=== PATIENT | male | born 1975 | race Caucasian/White ===

== ENCOUNTER → 2019-05-05 | Outpatient (CLI) | payer MEDICARE ==
[~2019-05-05] MED LIST: KEFLEX500 MG PO; PREDNISONE20 MG PO; VICODIN 5/500 505 MG PO
[2019-05-05 16:50] LABS: BASO # 0.1 10*3/uL (0.0-0.1); EOS # 0.3 10*3/uL (0.0-0.4); EOS % 3.6 % (1.0-4.0); HEMATOCRIT 40.7 % (42.0-52.0); HEMOGLOBIN 12.7 g/dl (14.0-18.0); LYMPH # 2.3 10*3/uL (1.3-4.4); LYMPH % 33.3 % (27.0-41.0); MEAN CELL VOLUME 94.7 fl (80.0-94.0); MEAN CORPUSCULAR HGB 29.5 pg (27.0-31.0); MEAN CORPUSCULAR HGB CONC 31.2 g/dl (33.0-37.0); MEAN PLATELET VOLUME 12.4 fl (9.6-12.3); MONO # 0.6 10*3/uL (0.1-1.0); NEUT # 3.8 10*3/uL (2.3-7.9); PLATELET COUNT AUTOMATED 170 10*3/uL (130-400); RED CELL DISTRI WIDTH 13.8 % (0-14.5)
[2019-05-05 16:54] LABS: BILIRUBIN NEGATIVE (NEGATIVE); BLOOD NEGATIVE (NEGATIVE); CLARITY SL CLOUDY (CLEAR); COLOR YELLOW (YELLOW); GLUCOSE NEGATIVE (NEGATIVE); KETONE NEGATIVE (NEGATIVE); LEUKO ESTERASE NEGATIVE (NEGATIVE); NITRITE NEGATIVE (NEGATIVE); UROBILINOGEN 0.2 E.U./dl (0.2-1.0)
[2019-05-05 17:02] LABS: BACTERIA TRACE; WBC 0-2 wbc/hpf (0-5)
[2019-05-05 17:07] LABS: ALBUMIN 3.7 gm/dl (3.1-4.5); ALKALINE PHOSPHATASE 60 U/L (45-117); BUN 46 mg/dl (7-24); CHLORIDE 104 mmol/L (98-107); CREATININE 3.08 mg/dL (0.70-1.30); LDH 247 U/L (87-241); POTASSIUM 3.9 mmol/L (3.5-5.1); SGOT/AST 8 IU/L (3-35); SGPT/ALT 14 U/L (12-78); SODIUM 137 mmol/L (136-145); TOTAL PROTEIN 7.8 gm/dL (6.4-8.2)
[2019-05-05 17:11] LABS: BETA-HCG, TUMOR MARKER < 1.0 mIU/mL (<1)
== END | disposition home or self-care (01) ==
LOC: LAB 15:41
PROVIDERS: Nurse Practitioner Family
DX: Z12.5 Encounter for screening for malignant neoplasm of prostate (principal); N50.819 Testicular pain, unspecified; I10 Essential (primary) hypertension

== ENCOUNTER 2019-05-24 08:15 | Emergency (ER) | payer MEDICARE ==
[~2019-05-24] VITALS: Ht 170.1 cm; Wt 149.7 kg
[2019-05-24] MEDS ORDERED: MEDROL DOSEPAK4 MG PO (11:06)
== END 2019-05-24 12:05 | disposition home or self-care (01) ==
LOC: ED 08:15
DX: M10.071 Idiopathic gout, right ankle and foot (principal); E11.9 Type 2 diabetes mellitus without complications; I10 Essential (primary) hypertension; Z91.013 Allergy to seafood

== ENCOUNTER → 2019-06-23 | Outpatient (CLI) | payer MEDICARE ==
[~2019-06-23] MED LIST changes: +MEDROL DOSEPAK4 MG PO
== END ==
LOC: US 12:58
DX: N50.812 Left testicular pain (principal); N43.3 Hydrocele, unspecified

== ENCOUNTER 2019-07-15 02:34 | Emergency (ER) | payer MEDICARE ==
[~2019-07-15] VITALS: Ht 170.1 cm; Wt 149.7 kg
[2019-07-15] MEDS ORDERED: GLIPIZIDE5 MG PO (02:53)
[2019-07-15] MEDS ORDERED: CLONIDINE HCL0.2 MG PO (02:54)
[2019-07-15] MEDS ORDERED: OZEMPIC1 MG/0.75 SQ (02:54)
[2019-07-15] MEDS ORDERED: LISINOPRIL20 MG PO (02:54)
[2019-07-15] MEDS ORDERED: METOPROLOL TAR100 M1 PO (02:54)
[2019-07-15] MEDS ORDERED: POTASSIUM CHLO10 ME4 PO (02:54)
[2019-07-15] MEDS ORDERED: XARE20MG PO (02:54)
[2019-07-15] MEDS ORDERED: FUROSEMIDE40 MG PO (02:54)
[2019-07-15] MEDS ORDERED: ALDACTONE25 MG PO (02:54)
== END 2019-07-15 04:00 | disposition home or self-care (01) ==
LOC: ED 02:34
DX: S96.911A Strain of unspecified muscle and tendon at ankle and foot level, right foot, initial encounter (principal); I10 Essential (primary) hypertension; J45.909 Unspecified asthma, uncomplicated; Z91.013 Allergy to seafood; Z79.899 Other long term (current) drug therapy; W22.8XXA Striking against or struck by other objects, initial encounter; Y93.89 Activity, other specified; Y92.89 Other specified places as the place of occurrence of the external cause; Y99.8 Other external cause status

== ENCOUNTER 2019-11-08 19:10 | Observation (INO) | payer MEDICARE ==
[~2019-11-08] VITALS: Ht 170.1 cm; Wt 155.8 kg
[~2019-11-08 19:10] MED LIST changes: +ALDACTONE25 MG PO; +CLONIDINE HCL0.2 MG PO; +FUROSEMIDE40 MG PO; +GLIPIZIDE5 MG PO; +LISINOPRIL20 MG PO; +METOPROLOL TAR100 M1 PO; +OZEMPIC1 MG/0.75 SQ; +POTASSIUM CHLO10 ME4 PO; +XARE20MG PO
[2019-11-08 19:15] VITALS: BP 151/99
[2019-11-08 19:59] LABS: BASO # 0.1 10*3/uL (0.0-0.1); BASO % 0.8 % (0.0-1.0); EOS # 0.2 10*3/uL (0.0-0.4); EOS % 3.4 % (1.0-4.0); HEMATOCRIT 48.6 % (42.0-52.0); HEMOGLOBIN 14.7 g/dl (14.0-18.0); LYMPH # 1.7 10*3/uL (1.3-4.4); LYMPH % 23.2 % (27.0-41.0); MEAN CELL VOLUME 93.5 fl (80.0-94.0); MEAN CORPUSCULAR HGB 28.3 pg (27.0-31.0); MEAN CORPUSCULAR HGB CONC 30.2 g/dl (33.0-37.0); MEAN PLATELET VOLUME 12.5 fl (9.6-12.3); MONO # 0.6 10*3/uL (0.1-1.0); NEUT # 4.5 10*3/uL (2.3-7.9); NEUT % 63.3 % (47.0-73.0); PLATELET COUNT AUTOMATED 149 10*3/uL (130-400); RED CELL DISTRI WIDTH 12.7 % (0-14.5); WHITE BLOOD COUNT 7.1 10*3/uL (4.8-10.8)
[2019-11-08 20:14] LABS: ACT PARTIAL THROMBO TIME 24.8 SECONDS (20.0-32.1); INTERNATIONAL NORM RATIO 0.9 (2.0-3.5)
[2019-11-08 20:16] LABS: ALBUMIN 3.2 gm/dl (3.1-4.5); CREATININE 1.79 mg/dL (0.70-1.30); POTASSIUM 4.2 mmol/L (3.5-5.1); TOTAL PROTEIN 7.6 gm/dL (6.4-8.2)
[2019-11-08 20:19] LABS: TROPONIN I 0.167 ng/ml (<0.045)
[2019-11-08 21:10] VITALS: BP 146/88
[2019-11-08 22:49] VITALS: BP 149/93
[2019-11-08] MEDS ORDERED: ALLOPURINOL100 MG PO (23:00)
[2019-11-08] MEDS ORDERED: SIMVASTATIN20 MG PO (23:01)
[2019-11-09] VITALS: BP 149/93
[2019-11-09 06:10] LABS: BASO # 0.1 10*3/uL (0.0-0.1); BASO % 0.8 % (0.0-1.0); EOS # 0.3 10*3/uL (0.0-0.4); EOS % 3.5 % (1.0-4.0); HEMATOCRIT 47.4 % (42.0-52.0); HEMOGLOBIN 14.6 g/dl (14.0-18.0); LYMPH # 2.3 10*3/uL (1.3-4.4); LYMPH % 30.6 % (27.0-41.0); MEAN CELL VOLUME 91.5 fl (80.0-94.0); MEAN CORPUSCULAR HGB 28.2 pg (27.0-31.0); MEAN CORPUSCULAR HGB CONC 30.8 g/dl (33.0-37.0); MEAN PLATELET VOLUME 12.2 fl (9.6-12.3); MONO # 0.8 10*3/uL (0.1-1.0); MONO % 10.6 % (3.0-9.0); NEUT # 4.1 10*3/uL (2.3-7.9); NEUT % 54.4 % (47.0-73.0); PLATELET COUNT AUTOMATED 158 10*3/uL (130-400); RED BLOOD COUNT 5.18 10*6/uL (4.50-5.90); RED CELL DISTRI WIDTH 12.7 % (0-14.5); WHITE BLOOD COUNT 7.6 10*3/uL (4.8-10.8)
[2019-11-09 06:24] LABS: BUN 24 mg/dl (7-24); CHLORIDE 109 mmol/L (98-107); CHOLESTEROL 157 mg/dL (<200); CREATININE 1.53 mg/dL (0.70-1.30); HDL CHOLESTEROL 58 mg/dl (40-60); LDL CHOLESTEROL 82 mg/dL (9-159); POTASSIUM 4.1 mmol/L (3.5-5.1); SODIUM 142 mmol/L (136-145); TRIGLYCERIDES 87 mg/dl (<150); VLDL CHOLESTEROL 17 mg/dL (6-40)
[2019-11-09 09:30] VITALS: BP 148/96
[2019-11-09 12:00] VITALS: BP 138/92
== END 2019-11-09 14:15 | disposition home or self-care (01) ==
LOC: ED 19:10 → EDHOLD 22:08 → 4E 22:08
PROVIDERS: Emergency Medicine; Family Medicine; ADMIT Internal Medicine
DX: I21.4 Non-ST elevation (NSTEMI) myocardial infarction (principal); Z45.02 Encounter for adjustment and management of automatic implantable cardiac defibrillator; R00.0 Tachycardia, unspecified; I42.9 Cardiomyopathy, unspecified; I82.509 Chronic embolism and thrombosis of unspecified deep veins of unspecified lower extremity; E11.65 Type 2 diabetes mellitus with hyperglycemia; E11.22 Type 2 diabetes mellitus with diabetic chronic kidney disease; E11.51 Type 2 diabetes mellitus with diabetic peripheral angiopathy without gangrene; I12.9 Hypertensive chronic kidney disease with stage 1 through stage 4 chronic kidney disease, or unspecified chronic kidney disease; N18.9 Chronic kidney disease, unspecified; M10.9 Gout, unspecified; E66.01 Morbid (severe) obesity due to excess calories; R06.82 Tachypnea, not elsewhere classified; E55.9 Vitamin D deficiency, unspecified; R65.10 Systemic inflammatory response syndrome (SIRS) of non-infectious origin without acute organ dysfunction; Z79.4 Long term (current) use of insulin; Z95.810 Presence of automatic (implantable) cardiac defibrillator; Z68.43 Body mass index [BMI] 50.0-59.9, adult

== ENCOUNTER 2020-01-01 20:06 | Emergency (ER) | payer MEDICARE ==
[~2020-01-01] VITALS: Ht 170.1 cm; Wt 149.7 kg
[~2020-01-01 20:06] MED LIST changes: +ALLOPURINOL100 MG PO; +SIMVASTATIN20 MG PO
[2020-01-01] MEDS ORDERED: PREDNISONE20 M1 PO (20:22)
== END 2020-01-01 20:43 | disposition home or self-care (01) ==
LOC: ED 20:06
DX: M10.9 Gout, unspecified (principal); I10 Essential (primary) hypertension; J45.909 Unspecified asthma, uncomplicated; Z79.899 Other long term (current) drug therapy; Z79.2 Long term (current) use of antibiotics

== ENCOUNTER 2020-03-25 20:56 | Emergency (ER) | payer MEDICARE ==
[~2020-03-25] VITALS: Ht 170.1 cm; Wt 136.1 kg
[~2020-03-25 20:56] MED LIST changes: +PREDNISONE20 M1 PO
[2020-03-25] MEDS ORDERED: ZOFRAN4 MG PO (22:52)
== END 2020-03-25 23:08 | disposition home or self-care (01) ==
LOC: ED 20:56
DX: R50.9 Fever, unspecified (principal); R51 Headache; R11.0 Nausea; M10.9 Gout, unspecified; E66.01 Morbid (severe) obesity due to excess calories; I12.9 Hypertensive chronic kidney disease with stage 1 through stage 4 chronic kidney disease, or unspecified chronic kidney disease; E11.22 Type 2 diabetes mellitus with diabetic chronic kidney disease; N18.9 Chronic kidney disease, unspecified; Z20.828 Contact with and (suspected) exposure to other viral communicable diseases; Z91.013 Allergy to seafood; Z79.899 Other long term (current) drug therapy; Z87.891 Personal history of nicotine dependence; Z79.4 Long term (current) use of insulin

== ENCOUNTER 2020-03-27 04:04 | Inpatient (IN) | payer MEDICARE ==
[~2020-03-27] VITALS: Ht 170.1 cm; Wt 158.4 kg
[2020-03-27] VITALS (10 sets, daily range): BP systolic 88–153; BP diastolic 47–78
[~2020-03-27 04:04] MED LIST changes: +ZOFRAN4 MG PO
[2020-03-27 05:59] LABS: BILIRUBIN NEGATIVE (NEGATIVE); BLOOD 3+ (NEGATIVE); CLARITY SL CLOUDY (CLEAR); COLOR YELLOW (YELLOW); GLUCOSE NEGATIVE (NEGATIVE); KETONE NEGATIVE (NEGATIVE); LEUKO ESTERASE NEGATIVE (NEGATIVE); NITRITE NEGATIVE (NEGATIVE)
[2020-03-27 06:03] LABS: BACTERIA 1+; EPITHELIAL CELLS 41-50; RBC 21-30 rbc/hpf (0-2)
[2020-03-27 06:07] LABS: HEMATOCRIT 48.6 % (42.0-52.0); MEAN CELL VOLUME 92.7 fl (80.0-94.0); MEAN CORPUSCULAR HGB 28.2 pg (27.0-31.0); MEAN CORPUSCULAR HGB CONC 30.5 g/dl (33.0-37.0); MEAN PLATELET VOLUME 13.2 fl (9.6-12.3); PLATELET COUNT AUTOMATED 72 10*3/uL (130-400); RED BLOOD COUNT 5.24 10*6/uL (4.50-5.90); RED CELL DISTRI WIDTH 13.8 % (0-14.5); WHITE BLOOD COUNT 11.8 10*3/uL (4.8-10.8)
[2020-03-27 06:26] LABS: ALBUMIN 2.7 gm/dl (3.1-4.5); CREATININE 2.56 mg/dL (0.70-1.30); POTASSIUM 4.4 mmol/L (3.5-5.1); TOTAL PROTEIN 7.2 gm/dL (6.4-8.2)
[2020-03-27 06:51] LABS: PLATELET SUFFICIENCY LOW (NORMAL); TOTAL CELLS COUNTED 100 #CELLS
--- NOTE | 2020-03-27 07:00 | NUR ---
PT SAYS MEDICATION IS EFFECTIVE BUT PAIN IS STILL THERE
--- NOTE | 2020-03-27 07:40 | NUR ---
BP BETTER 102/47. PT STATES HE IS FEELING BETTER COMPARED TO WHEN HE FIRST CAME IN.---SIMONE KIM RN
--- NOTE | 2020-03-27 10:13 | NUR ---
Time: 1009 A 45 year old MALE admitted to under services of KENDALL CUETO DO. Pt. arrived via stretcher from ER. Chief complaint: RT FLANK PAIN. TESTED FRIDAY FOR COVID AFTER BEING IN [place] BUT NO SYMPTOMS SHAYNA TAYLOR
--- NOTE | 2020-03-27 13:48 | NUR ---
MEDICATED WITH PRN NORCO PER ORDER FOR CO RIGHT FLANK PAIN. WILL ASSESS EFFECTIVENESS.
--- NOTE | 2020-03-27 14:48 | NUR ---
PER PATIENT NORCO ONLY SOMEWHAT EFFECTIVE.
--- NOTE | 2020-03-27 16:17 | NUR ---
MEDICATED WITH PRN MORPHINE FOR CO RIGHT FLANK PAIN. WILL ASSESS EFFECTIVENESS.
--- NOTE | 2020-03-27 16:36 | NUR ---
BSG CHECKED AT THIS TIME AND WAS 73. PATIENT GIVEN ORANGE JUICE.
--- NOTE | 2020-03-27 17:15 | NUR ---
NOTIFIED PATIENTS HR STAYING IN THE 140S.
--- NOTE | 2020-03-27 17:17 | NUR ---
PER PATIENT MORPHINE ONLY SOMEWHAT EFFECTIVE.
--- NOTE | 2020-03-27 17:20 | NUR ---
PER TO GIVE METOPROLOL 100 MG NOW AND THEN DEPENDING ON RATE MAY STILL GIVE 2200 DOSE. WILL MONITOR.
--- NOTE | 2020-03-27 17:47 | NUR ---
MEDICATED WITH METOPROLOL 100mg PO FOR ELEVATED HEART RATE. PATIENT LAYING IN BED AND RESP RATE 24 BUT RESP ARE SLIGHTLY LABORED. PT SAID HE WAS JUST STANDING UP HIS BACK HURT.. DISCUSSED POSITIVE BLOOD CULTURES AND IMPORATNCE OF SELF PRONING. DISCUSSED WORST CASE SENARIO PATIENT ASKED HOW BAD IT COULD GET.
--- NOTE | 2020-03-27 18:04 | NUR ---
ANSWERING SERVICE NOTIFIED OF NEW CONSULT.
--- NOTE | 2020-03-27 18:14 | NUR ---
CALLED BACK REGARDING NEW CONSULT. DISCUSSED PATIENT CONDITION. NEW ORDERS RECEIVED.
--- NOTE | 2020-03-27 18:53 | NUR ---
MEDICATED WITH PRN TYLENOL AT THIS TIME FOR TEMP OF 101.4. WILL MONITOR.
--- NOTE | 2020-03-27 18:59 | NUR ---
PER TO GET A FULL SET OF VITALS ON PATIENT. INFORMED PATIENTS TEMP 101.4, BP 124/74, HR 122, 95% ON ROOM AIR. PER DR. LEVI REASSESS VITALS AT 2200. IF BP > 140 GIVE 2200 DOSE OF METOPROLOL, IF < 140 HOLD 2200 DOSE OF METOPROLOL.
--- NOTE | 2020-03-27 20:45 | NUR ---
IN TO SEE PT AT THIS TIME. PT STATES THAT HE IS FEELING OKAY. VITALS WNL. RESPS EASY AND NONLABORED. BED IS LOW, CALL LIGHT WITHIN REACH. WILL CONTINUE TO MONITOR.
[2020-03-28] VITALS: BP 122/74
[2020-03-28 06:06] LABS: ALBUMIN 2.2 gm/dl (3.1-4.5); CREATININE 1.85 mg/dL (0.70-1.30); FREE T4 1.38 ng/dl (0.76-1.46); HEMATOCRIT 45.4 % (42.0-52.0); MEAN CELL VOLUME 91.9 fl (80.0-94.0); MEAN CORPUSCULAR HGB 28.7 pg (27.0-31.0); MEAN CORPUSCULAR HGB CONC 31.3 g/dl (33.0-37.0); MEAN PLATELET VOLUME 13.8 fl (9.6-12.3); PLATELET COUNT AUTOMATED 52 10*3/uL (130-400); POTASSIUM 4.2 mmol/L (3.5-5.1); RED BLOOD COUNT 4.94 10*6/uL (4.50-5.90); RED CELL DISTRI WIDTH 14.2 % (0-14.5); TOTAL PROTEIN 6.9 gm/dL (6.4-8.2); WHITE BLOOD COUNT 12.2 10*3/uL (4.8-10.8)
[2020-03-28 06:11] LABS: THYROID STIM HORMONE (HS) 1.71 uIU/ml (0.358-4.75)
[2020-03-28 06:12] LABS: ACT PARTIAL THROMBO TIME 31.8 SECONDS (20.0-32.1)
[2020-03-28 06:35] LABS: PLATELET SUFFICIENCY LOW (NORMAL); TOTAL CELLS COUNTED 100 #CELLS
[2020-03-28 07:04] LABS: VITAMIN D, 25-HYDROXY 22.9 ng/mL (30-100)
--- NOTE | 2020-03-28 07:53 | NUR ---
NOTIFIED DR. LEVI OF PT'S BP.
[2020-03-28 08:00] VITALS: BP 149/108
--- NOTE | 2020-03-28 09:00 | NUR ---
Managing Director Atlas in to talk to patient. Patient states lives at home with alone There are no steps in the home. Physician: wade nova [facility]acy: [facility] Home health services: none Patient's level of ADLs: INDEPENDENT Patient has working utilities: all working DME: none Follow-up physician's appointment after d/c: will be made by hospitalist nurse director upon discharge Does patient want to access PORTAL?: no Discharge plan discussed with patient, he lives at home is independent in adls and ambulation, he will return home when discharged and denies any home needs. MODESTA ATKINS
--- NOTE | 2020-03-28 11:24 | NUR ---
NOTIFIED DR. GARCIA OF PT'S BP.
[2020-03-28 12:00] VITALS: BP 148/98
[2020-03-28 12:07] LABS: CLARITY CLEAR (CLEAR); COLOR YELLOW (YELLOW)
[2020-03-28 12:08] LABS: BILIRUBIN NEGATIVE (NEGATIVE); BLOOD 3+ (NEGATIVE); GLUCOSE NEGATIVE (NEGATIVE); KETONE NEGATIVE (NEGATIVE); LEUKO ESTERASE NEGATIVE (NEGATIVE); NITRITE NEGATIVE (NEGATIVE); SPECIFIC GRAVITY 1.005 (1.005-1.030)
[2020-03-28 12:46] LABS: BACTERIA 3+; RBC 51-100 rbc/hpf (0-2)
--- NOTE | 2020-03-28 15:50 | NUR ---
NOTIFIED DR. APARICIO OF PT'S BP
[2020-03-28 16:00] VITALS: BP 143/104
--- NOTE | 2020-03-28 16:43 | NUR ---
DR. GUPTA'S ASWERING SERVICE NOTIFIED OF CONSULT.
--- NOTE | 2020-03-28 17:40 | NUR ---
NORCO GIVEN FOR C/O BACK PAIN. RATES 8/10 ON PAIN SCALE. WILL MONITOR
--- NOTE | 2020-03-28 18:30 | NUR ---
NORCO HELPING PER PT. WILL CONTINUE TO MONITOR.
[2020-03-28 20:00] VITALS: BP 154/100
--- NOTE | 2020-03-28 22:36 | NUR ---
PATIENT C/O FLANK PAIN. RATES 02/24. REQUESTING NORCO. MEDICATED AT THIS TIME. WILL CHECK EFFECTIVENESS.
--- NOTE | 2020-03-28 23:30 | NUR ---
PATIENT STATES [facility]. WILL CONTINUE TO MONITOR.
[2020-03-29] VITALS (9 sets, daily range): BP systolic 129–190; BP diastolic 82–118
--- NOTE | 2020-03-29 06:30 | NUR ---
SPOKE WITH TRISTEN FROM SURGERY, PER TRISTEN PATIENT WILL HAVE ANDREZ DONE IN ROOM, UNSURE OF TIME.
--- NOTE | 2020-03-29 06:47 | NUR ---
NOTIFIED DR. GONZALEZ OF SENSITIVITY OF BLOOD CULTURES.
--- NOTE | 2020-03-29 07:12 | NUR ---
NOTIFIED DR. RUIZ ANSWERING SERVICE. WAITING ON DR. JACOBO TO CALL BACK.
--- NOTE | 2020-03-29 07:15 | NUR ---
DR. JACOBO CALLED BACK NO NEW ORDERS RECEIVED,
--- NOTE | 2020-03-29 07:54 | NUR ---
NOTIFIED DR. LEVI PT'S BP, NEW ORDERS GIVEN.
[2020-03-29 08:34] LABS: HEMATOCRIT 47.6 % (42.0-52.0); MEAN CELL VOLUME 91.4 fl (80.0-94.0); MEAN CORPUSCULAR HGB CONC 30.7 g/dl (33.0-37.0); MEAN PLATELET VOLUME 13.9 fl (9.6-12.3); RED BLOOD COUNT 5.21 10*6/uL (4.50-5.90); RED CELL DISTRI WIDTH 14.1 % (0-14.5); WHITE BLOOD COUNT 12.9 10*3/uL (4.8-10.8)
[2020-03-29 08:35] LABS: PLATELET COUNT AUTOMATED 72 10*3/uL (130-400)
[2020-03-29 08:37] LABS: CREATININE 1.66 mg/dL (0.70-1.30); POTASSIUM 4.2 mmol/L (3.5-5.1)
[2020-03-29 08:48] LABS: BURR CELLS FEW; PLATELET SUFFICIENCY LOW (NORMAL); TOTAL CELLS COUNTED 100 #CELLS
--- NOTE | 2020-03-29 09:00 | NUR ---
case management visits with patient, he states he will return home when discharged, discussed with him if upon discharge he needs iv antibiotics if he would be able to come into the hospital as an outpatient for this, educated him that his insurance did not pay for home iv medications, also discussed with him a short term jail for iv antibiotics, he declined a SNf stated he would be able to come back into the hospital for iv antibiotics if needed, case management will follow
--- NOTE | 2020-03-29 10:49 | NUR ---
OFF FLOOR TO SURGERY
--- NOTE | 2020-03-29 18:51 | NUR ---
NORCO GIVEN FOR C/O BACK PAIN. RATES 8/10 ON PAIN SCALE. WILL MONITOR.
--- NOTE | 2020-03-29 20:55 | NUR ---
[facility], PATIENT LEFT WITH ALL BELONGINGS. HEART MONITOR REMOVED. REPORT GIVEN TO RUBIO ESTEVES.
[2020-04-04] MEDS ORDERED: VANCOMYCIN1.5 GM/251 IV (10:41)
== END 2020-03-29 20:58 | disposition short-term general hospital (02) | DRG 288 ==
LOC: ED 04:04 → 4E 09:21 → 5E 09:21 → 4E 09:52
PROVIDERS: Emergency Medicine; Hospitalist; Internal Medicine; ADMIT Student in an Organized Health Care Education/Training Program; ATTEND Student in an Organized Health Care Education/Training Program
PROC: B24BZZ4 Ultrasonography of Heart with Aorta, Transesophageal (ICD-10-PCS; principal; 2020-03-29)
DX: I33.0 Acute and subacute infective endocarditis (principal); N17.0 Acute kidney failure with tubular necrosis; E43 Unspecified severe protein-calorie malnutrition; Z68.43 Body mass index [BMI] 50.0-59.9, adult; R17 Unspecified jaundice; I82.532 Chronic embolism and thrombosis of left popliteal vein; T82.897A Other specified complication of cardiac prosthetic devices, implants and grafts, initial encounter; R78.81 Bacteremia; E86.0 Dehydration; Z20.828 Contact with and (suspected) exposure to other viral communicable diseases; I95.9 Hypotension, unspecified; E11.22 Type 2 diabetes mellitus with diabetic chronic kidney disease; E11.65 Type 2 diabetes mellitus with hyperglycemia; M1A.09X0 Idiopathic chronic gout, multiple sites, without tophus (tophi); E66.01 Morbid (severe) obesity due to excess calories; I12.9 Hypertensive chronic kidney disease with stage 1 through stage 4 chronic kidney disease, or unspecified chronic kidney disease; E55.9 Vitamin D deficiency, unspecified; E53.8 Deficiency of other specified B group vitamins; B95.4 Other streptococcus as the cause of diseases classified elsewhere; I70.0 Atherosclerosis of aorta; E11.51 Type 2 diabetes mellitus with diabetic peripheral angiopathy without gangrene; Y83.8 Other surgical procedures as the cause of abnormal reaction of the patient, or of later complication, without mention of misadventure at the time of the procedure; Y92.89 Other specified places as the place of occurrence of the external cause; Z95.810 Presence of automatic (implantable) cardiac defibrillator; Z82.49 Family history of ischemic heart disease and other diseases of the circulatory system; Z83.3 Family history of diabetes mellitus; Z91.013 Allergy to seafood; Z87.891 Personal history of nicotine dependence; Z85.72 Personal history of non-Hodgkin lymphomas; Z92.21 Personal history of antineoplastic chemotherapy; Z95.820 Peripheral vascular angioplasty status with implants and grafts; I25.2 Old myocardial infarction; Z79.899 Other long term (current) drug therapy; Z79.01 Long term (current) use of anticoagulants; Z79.84 Long term (current) use of oral hypoglycemic drugs; Z87.442 Personal history of urinary calculi; Z85.528 Personal history of other malignant neoplasm of kidney

== ENCOUNTER → 2020-04-27 | Outpatient (CLI) | payer MEDICARE ==
[~2020-04-27] MED LIST changes: +VANCOMYCIN1.5 GM/251 IV
[2020-04-27 11:21] LABS: BASO # 0.1 10*3/uL (0.0-0.1); BASO % 1.4 % (0.0-1.0); EOS # 0.3 10*3/uL (0.0-0.4); EOS % 5.9 % (1.0-4.0); HEMATOCRIT 46.7 % (42.0-52.0); LYMPH # 1.9 10*3/uL (1.3-4.4); LYMPH % 32.3 % (27.0-41.0); MEAN CELL VOLUME 93.6 fl (80.0-94.0); MEAN CORPUSCULAR HGB 28.1 pg (27.0-31.0); MEAN PLATELET VOLUME 12.3 fl (9.6-12.3); MONO # 0.5 10*3/uL (0.1-1.0); MONO % 8.2 % (3.0-9.0); PLATELET COUNT AUTOMATED 130 10*3/uL (130-400); RED BLOOD COUNT 4.99 10*6/uL (4.50-5.90); RED CELL DISTRI WIDTH 13.7 % (0-14.5); WHITE BLOOD COUNT 5.8 10*3/uL (4.8-10.8)
[2020-04-27 12:02] LABS: ALBUMIN 3.3 gm/dl (3.1-4.5); CREATININE 1.73 mg/dL (0.70-1.30); POTASSIUM 3.7 mmol/L (3.5-5.1); TOTAL PROTEIN 8.1 gm/dL (6.4-8.2)
== END | disposition home or self-care (01) ==
LOC: LAB 10:55
PROVIDERS: ATTEND Specialist
DX: R78.81 Bacteremia (principal); R07.9 Chest pain, unspecified

== ENCOUNTER 2020-07-04 21:37 | Emergency (ER) | payer MEDICARE ==
[~2020-07-04] VITALS: Ht 170.1 cm; Wt 158.8 kg
[2020-07-04] MEDS ORDERED: MEDROL DOSEPAK4 MG PO (21:51)
== END 2020-07-04 21:54 | disposition home or self-care (01) ==
LOC: ED 21:37
DX: M10.9 Gout, unspecified (principal); Z91.013 Allergy to seafood; Z88.8 Allergy status to other drugs, medicaments and biological substances; Z79.899 Other long term (current) drug therapy

== ENCOUNTER 2020-09-11 15:01 | Inpatient (IN) | payer MEDICARE ==
[~2020-09-11] VITALS: Ht 170.2 cm; Wt 152.4 kg
[~2020-09-11 15:01] MED LIST changes: +DEBROX15 ML OT; +MUCINEX ER600 MG PO; +TYLENOL325 M1 PO
[2020-09-11 15:09] VITALS: BP 117/96
[2020-09-11 16:26] VITALS: BP 111/65
[2020-09-11 16:57] LABS: HEMATOCRIT 46.6 % (42.0-52.0); MEAN CELL VOLUME 91.4 fl (80.0-94.0); MEAN CORPUSCULAR HGB 27.6 pg (27.0-31.0); MEAN CORPUSCULAR HGB CONC 30.3 g/dl (33.0-37.0); MEAN PLATELET VOLUME 12.3 fl (9.6-12.3); PLATELET COUNT AUTOMATED 86 10*3/uL (130-400); WHITE BLOOD COUNT 7.8 10*3/uL (4.8-10.8)
[2020-09-11 17:11] LABS: ALBUMIN 2.4 gm/dl (3.1-4.5); ALKALINE PHOSPHATASE 90 U/L (45-117); BUN 33 mg/dl (7-24); CHLORIDE 105 mmol/L (98-107); CREATININE 2.36 mg/dL (0.70-1.30); LIPASE 83 U/L (73-393); POTASSIUM 4.2 mmol/L (3.5-5.1); SGOT/AST 30 IU/L (3-35); SGPT/ALT 22 U/L (12-78); SODIUM 137 mmol/L (136-145); TOTAL PROTEIN 7.5 gm/dL (6.4-8.2); TROPONIN I < 0.015 ng/ml (<0.045)
[2020-09-11 17:15] LABS: ACT PARTIAL THROMBO TIME 41.9 SECONDS (20.0-32.1); INTERNATIONAL NORM RATIO 1.2 (2.0-3.5)
[2020-09-11 17:19] LABS: BILIRUBIN Negative (Negative); BLOOD 2+ (Negative); CLARITY Clear (Clear); COLOR Yellow (Yellow); GLUCOSE Negative (Negative); KETONE Negative (Negative); LEUKO ESTERASE Trace (Negative); NITRITE Negative (Negative)
[2020-09-11 17:29] LABS: PLATELET SUFFICIENCY LOW (NORMAL); TOTAL CELLS COUNTED 100 #CELLS
[2020-09-11 17:48] LABS: BACTERIA TRACE; RBC TNTC rbc/hpf (0-2)
[2020-09-11 19:15] VITALS: BP 114/68
[2020-09-11 22:31] VITALS: BP 160/80
[2020-09-12] VITALS: BP 156/87
[2020-09-12 03:48] LABS: BASO % 0.5 % (0.0-1.0); HEMATOCRIT 45.7 % (42.0-52.0); LYMPH # 0.8 10*3/uL (1.3-4.4); LYMPH % 12.4 % (27.0-41.0); MEAN CELL VOLUME 91.6 fl (80.0-94.0); MEAN CORPUSCULAR HGB 27.3 pg (27.0-31.0); MEAN CORPUSCULAR HGB CONC 29.8 g/dl (33.0-37.0); MONO # 0.4 10*3/uL (0.1-1.0); MONO % 6.9 % (3.0-9.0); NEUT # 5.1 10*3/uL (2.3-7.9); NEUT % 79.6 % (47.0-73.0); PLATELET COUNT AUTOMATED 72 10*3/uL (130-400); RED BLOOD COUNT 4.99 10*6/uL (4.50-5.90); RED CELL DISTRI WIDTH 14.2 % (0-14.5); WHITE BLOOD COUNT 6.4 10*3/uL (4.8-10.8)
[2020-09-12 04:01] LABS: ACT PARTIAL THROMBO TIME 37.6 SECONDS (20.0-32.1); INTERNATIONAL NORM RATIO 1.1 (2.0-3.5)
[2020-09-12 04:02] LABS: CREATININE 2.06 mg/dL (0.70-1.30)
[2020-09-12 04:09] LABS: FREE T4 1.47 ng/dl (0.76-1.46); THYROID STIM HORMONE (HS) 2.88 uIU/ml (0.358-4.75)
[2020-09-12 04:12] LABS: ALBUMIN 2.2 gm/dl (3.1-4.5)
[2020-09-12 07:20] LABS: FERRITIN 222.2 ng/mL (22.0-322.0); VITAMIN D, 25-HYDROXY 11.2 ng/mL (30-100)
[2020-09-12 12:00] VITALS: BP 129/75
[2020-09-12 16:00] VITALS: BP 141/93
[2020-09-12 20:00] VITALS: BP 123/72
[2020-09-13] VITALS (9 sets, daily range): BP systolic 126–169; BP diastolic 36–90
[2020-09-13 06:18] LABS: ALBUMIN 2.3 gm/dl (3.1-4.5); CREATININE 1.72 mg/dL (0.70-1.30); POTASSIUM 4.2 mmol/L (3.5-5.1); TOTAL PROTEIN 7.3 gm/dL (6.4-8.2)
[2020-09-13 06:20] LABS: MEAN CORPUSCULAR HGB 27.6 pg (27.0-31.0); MEAN CORPUSCULAR HGB CONC 30.7 g/dl (33.0-37.0); MEAN PLATELET VOLUME 13.3 fl (9.6-12.3); PLATELET COUNT AUTOMATED 91 10*3/uL (130-400); RED BLOOD COUNT 4.78 10*6/uL (4.50-5.90); RED CELL DISTRI WIDTH 14.3 % (0-14.5); WHITE BLOOD COUNT 9.3 10*3/uL (4.8-10.8)
[2020-09-13 07:17] LABS: PLATELET SUFFICIENCY LOW (NORMAL); TOTAL CELLS COUNTED 100 #CELLS
[2020-09-14] VITALS: BP 149/95
[2020-09-14 06:16] LABS: BASO # 0.1 10*3/uL (0.0-0.1); BASO % 0.5 % (0.0-1.0); EOS # 0.1 10*3/uL (0.0-0.4); HEMATOCRIT 42.9 % (42.0-52.0); MEAN CELL VOLUME 90.7 fl (80.0-94.0); MEAN CORPUSCULAR HGB 27.7 pg (27.0-31.0); MEAN CORPUSCULAR HGB CONC 30.5 g/dl (33.0-37.0); MONO # 1.4 10*3/uL (0.1-1.0); NEUT # 7.1 10*3/uL (2.3-7.9); NEUT % 65.9 % (47.0-73.0); PLATELET COUNT AUTOMATED 114 10*3/uL (130-400); RED BLOOD COUNT 4.73 10*6/uL (4.50-5.90); RED CELL DISTRI WIDTH 14.5 % (0-14.5); WHITE BLOOD COUNT 10.8 10*3/uL (4.8-10.8)
[2020-09-14 06:33] LABS: ALBUMIN 2.2 gm/dl (3.1-4.5); CREATININE 1.55 mg/dL (0.70-1.30); POTASSIUM 4.3 mmol/L (3.5-5.1); TOTAL PROTEIN 7.2 gm/dL (6.4-8.2)
[2020-09-14 08:00] VITALS: BP 130/82
[2020-09-14 12:00] VITALS: BP 150/80
[2020-09-14 16:00] VITALS: BP 154/84
[2020-09-14 20:00] VITALS: BP 128/87
== END 2020-09-14 21:17 | disposition short-term general hospital (02) | DRG 871 ==
LOC: ED 15:01 → 4E 21:56 → EDHOLD 21:56 → 4E 23:02
PROVIDERS: Hospitalist; Physician Assistant; ADMIT Internal Medicine; ATTEND Internal Medicine
PROC: B24BZZ4 Ultrasonography of Heart with Aorta, Transesophageal (ICD-10-PCS; principal; 2020-09-13)
DX: A40.1 Sepsis due to streptococcus, group B (principal); N17.0 Acute kidney failure with tubular necrosis; J12.9 Viral pneumonia, unspecified; E43 Unspecified severe protein-calorie malnutrition; N39.0 Urinary tract infection, site not specified; I42.9 Cardiomyopathy, unspecified; I82.502 Chronic embolism and thrombosis of unspecified deep veins of left lower extremity; Z68.43 Body mass index [BMI] 50.0-59.9, adult; R31.9 Hematuria, unspecified; D64.9 Anemia, unspecified; E53.8 Deficiency of other specified B group vitamins; E11.51 Type 2 diabetes mellitus with diabetic peripheral angiopathy without gangrene; E55.9 Vitamin D deficiency, unspecified; M1A.9XX0 Chronic gout, unspecified, without tophus (tophi); I12.9 Hypertensive chronic kidney disease with stage 1 through stage 4 chronic kidney disease, or unspecified chronic kidney disease; N18.32 Chronic kidney disease, stage 3b; E11.65 Type 2 diabetes mellitus with hyperglycemia; E11.22 Type 2 diabetes mellitus with diabetic chronic kidney disease; E66.01 Morbid (severe) obesity due to excess calories; Z20.822 Contact with and (suspected) exposure to COVID-19; Z88.1 Allergy status to other antibiotic agents; Z91.013 Allergy to seafood; Z79.1 Long term (current) use of non-steroidal anti-inflammatories (NSAID); Z79.899 Other long term (current) drug therapy; Z82.49 Family history of ischemic heart disease and other diseases of the circulatory system; Z83.3 Family history of diabetes mellitus

== ENCOUNTER 2020-09-21 00:17 | Emergency (ER) | payer MEDICARE ==
[~2020-09-21] VITALS: Wt 159.7 kg
== END 2020-09-21 04:08 ==
LOC: ED 00:17
DX: R07.81 Pleurodynia (principal); M10.9 Gout, unspecified; E66.9 Obesity, unspecified; Z95.0 Presence of cardiac pacemaker; Z95.5 Presence of coronary angioplasty implant and graft; Z87.891 Personal history of nicotine dependence; Z79.899 Other long term (current) drug therapy; Z91.013 Allergy to seafood; Z88.1 Allergy status to other antibiotic agents

== ENCOUNTER → 2020-11-27 | Outpatient (CLI) | payer MEDICARE ==
[2020-11-27 09:31] LABS: BASO # 0.1 10*3/uL (0.0-0.1); EOS # 0.2 10*3/uL (0.0-0.4); HEMATOCRIT 45.3 % (42.0-52.0); LYMPH # 1.8 10*3/uL (1.3-4.4); LYMPH % 30.1 % (27.0-41.0); MEAN CORPUSCULAR HGB 28.3 pg (27.0-31.0); MEAN CORPUSCULAR HGB CONC 30.5 g/dl (33.0-37.0); MEAN PLATELET VOLUME 12.1 fl (9.6-12.3); MONO # 0.5 10*3/uL (0.1-1.0); NEUT # 3.4 10*3/uL (2.3-7.9); NEUT % 57.7 % (47.0-73.0); PLATELET COUNT AUTOMATED 175 10*3/uL (130-400); RED BLOOD COUNT 4.87 10*6/uL (4.50-5.90); RED CELL DISTRI WIDTH 14.2 % (0-14.5); WHITE BLOOD COUNT 5.9 10*3/uL (4.8-10.8)
[2020-11-27 09:49] LABS: ALBUMIN 3.2 gm/dl (3.1-4.5); CREATININE 1.6 mg/dL (0.70-1.30); POTASSIUM 4.1 mmol/L (3.5-5.1); TOTAL PROTEIN 7.6 gm/dL (6.4-8.2)
[2020-11-27 09:56] LABS: THYROID STIM HORMONE (HS) 2.46 uIU/ml (0.358-4.75)
== END | disposition home or self-care (01) ==
LOC: LAB 08:53
PROVIDERS: ATTEND Nurse Practitioner Family
DX: I12.9 Hypertensive chronic kidney disease with stage 1 through stage 4 chronic kidney disease, or unspecified chronic kidney disease (principal); E11.22 Type 2 diabetes mellitus with diabetic chronic kidney disease; N18.30 Chronic kidney disease, stage 3 unspecified; E78.00 Pure hypercholesterolemia, unspecified; E55.9 Vitamin D deficiency, unspecified

== ENCOUNTER 2021-01-29 18:56 | Emergency (ER) | payer MEDICARE ==
[~2021-01-29] VITALS: Ht 170.1 cm; Wt 167.8 kg
== END 2021-01-29 23:47 | disposition home or self-care (01) ==
LOC: ED 18:56
DX: T78.49XA Other allergy, initial encounter (principal); Z91.013 Allergy to seafood; Z88.1 Allergy status to other antibiotic agents; Z79.899 Other long term (current) drug therapy; Z90.89 Acquired absence of other organs; Z95.0 Presence of cardiac pacemaker; Z87.891 Personal history of nicotine dependence; X58.XXXA Exposure to other specified factors, initial encounter

== ENCOUNTER 2021-03-22 06:39 | Emergency (ER) | payer MEDICARE ==
[~2021-03-22] VITALS: Ht 170.1 cm; Wt 165.6 kg
[2021-03-22] MEDS ORDERED: PREDNISONE50 MG PO (07:54)
== END 2021-03-22 08:05 | disposition home or self-care (01) ==
LOC: ED 06:39
DX: M10.061 Idiopathic gout, right knee (principal); Z91.013 Allergy to seafood; Z88.1 Allergy status to other antibiotic agents; Z79.899 Other long term (current) drug therapy; Z90.89 Acquired absence of other organs; Z95.0 Presence of cardiac pacemaker; Z98.890 Other specified postprocedural states; Z87.891 Personal history of nicotine dependence

== ENCOUNTER 2021-05-20 07:55 | Emergency (ER) | payer MEDICARE ==
[~2021-05-20] VITALS: Ht 170.1 cm; Wt 167.8 kg
[~2021-05-20 07:55] MED LIST changes: +PREDNISONE50 MG PO
[2021-05-20] MEDS ORDERED: PREDNISONE50 MG PO (08:17)
== END 2021-05-20 08:45 | disposition home or self-care (01) ==
LOC: ED 07:55
DX: M10.072 Idiopathic gout, left ankle and foot (principal); Z91.013 Allergy to seafood; Z88.1 Allergy status to other antibiotic agents; Z79.899 Other long term (current) drug therapy; Z90.89 Acquired absence of other organs; Z95.0 Presence of cardiac pacemaker; Z87.891 Personal history of nicotine dependence

== ENCOUNTER 2021-06-04 19:59 | Emergency (ER) | payer MEDICARE ==
[~2021-06-04] VITALS: Wt 170.1 kg
[2021-06-04] MEDS ORDERED: HYDROCODONE-AC1 EAC1 PO ×2 (21:45→21:47)
[2021-06-04] MEDS ORDERED: PREDNISONE20 M1 PO (21:47)
== END 2021-06-04 21:55 | disposition home or self-care (01) ==
LOC: ED 19:59
DX: M10.9 Gout, unspecified (principal); Z91.013 Allergy to seafood; Z88.1 Allergy status to other antibiotic agents; Z79.899 Other long term (current) drug therapy; Z87.891 Personal history of nicotine dependence

== ENCOUNTER 2021-07-23 19:16 | Emergency (ER) | payer MEDICARE ==
[~2021-07-23] VITALS: Ht 170.1 cm; Wt 165.6 kg
[~2021-07-23 19:16] MED LIST changes: +HYDROCODONE-AC1 EAC1 PO
[2021-07-23] MEDS ORDERED: PREDNISONE20 M1 PO (21:53)
== END 2021-07-23 22:10 | disposition home or self-care (01) ==
LOC: ED 19:16
DX: M10.9 Gout, unspecified (principal); Z91.013 Allergy to seafood; Z88.1 Allergy status to other antibiotic agents; Z79.899 Other long term (current) drug therapy; Z87.891 Personal history of nicotine dependence

== ENCOUNTER 2021-09-06 06:07 | Emergency (ER) | payer MEDICARE ==
[2021-09-06] MEDS ORDERED: MEDROL DOSEPAK4 MG PO (09:35)
== END 2021-09-06 09:57 | disposition home or self-care (01) ==
LOC: ED 06:07
DX: M10.062 Idiopathic gout, left knee (principal); E66.01 Morbid (severe) obesity due to excess calories; I12.9 Hypertensive chronic kidney disease with stage 1 through stage 4 chronic kidney disease, or unspecified chronic kidney disease; N18.30 Chronic kidney disease, stage 3 unspecified; Z91.013 Allergy to seafood; Z88.1 Allergy status to other antibiotic agents; Z79.899 Other long term (current) drug therapy; Z87.891 Personal history of nicotine dependence; Z90.89 Acquired absence of other organs; Z98.890 Other specified postprocedural states

== ENCOUNTER 2021-11-24 09:32 | Emergency (ER) | payer MEDICARE ==
[~2021-11-24] VITALS: Ht 170.1 cm; Wt 167.8 kg
[2021-11-24] MEDS ORDERED: PREDNISONE50 MG PO (10:07)
== END 2021-11-24 10:30 | disposition home or self-care (01) ==
LOC: ED 09:32
DX: M10.9 Gout, unspecified (principal); Z91.013 Allergy to seafood; Z88.1 Allergy status to other antibiotic agents; Z79.899 Other long term (current) drug therapy; Z90.89 Acquired absence of other organs; Z98.890 Other specified postprocedural states

== ENCOUNTER 2022-01-30 23:46 | Emergency (ER) | payer MEDICARE ==
[~2022-01-30] VITALS: Ht 175.2 cm; Wt 149.7 kg
[2022-01-31 02:00] LABS: BASO # 0.1 10*3/uL (0.0-0.1); BASO % 0.8 % (0.0-1.0); EOS # 0.3 10*3/uL (0.0-0.4); EOS % 3.7 % (1.0-4.0); HEMATOCRIT 51.4 % (42.0-52.0); MEAN CELL VOLUME 92.8 fl (80.0-94.0); MEAN CORPUSCULAR HGB 28.3 pg (27.0-31.0); MEAN CORPUSCULAR HGB CONC 30.5 g/dl (33.0-37.0); MEAN PLATELET VOLUME 12.1 fl (9.6-12.3); MONO # 1.1 10*3/uL (0.1-1.0); MONO % 13.1 % (3.0-9.0); NEUT # 5.1 10*3/uL (2.3-7.9); NEUT % 59.2 % (47.0-73.0); PLATELET COUNT AUTOMATED 151 10*3/uL (130-400); RED BLOOD COUNT 5.54 10*6/uL (4.50-5.90); RED CELL DISTRI WIDTH 13.7 % (0-14.5); WHITE BLOOD COUNT 8.6 10*3/uL (4.8-10.8)
[2022-01-31 02:12] LABS: CREATININE 1.89 mg/dL (0.70-1.30); POTASSIUM 4.3 mmol/L (3.5-5.1); URIC ACID 9.1 mg/dL (3.5-7.2)
[2022-01-31] MEDS ORDERED: PREDNISONE10 M1 PO (02:48)
[2022-01-31] MEDS ORDERED: HYDROCODONE-AC1 EAC1 PO (02:50)
== END 2022-01-31 02:54 | disposition home or self-care (01) ==
LOC: ED 23:46
PROVIDERS: Emergency Medicine
DX: M10.9 Gout, unspecified (principal)

== ENCOUNTER 2022-03-15 06:42 | Emergency (ER) | payer OTHER ==
[~2022-03-15] VITALS: Ht 170.1 cm; Wt 158.8 kg
[~2022-03-15 06:42] MED LIST changes: +PREDNISONE10 M1 PO
[2022-03-15] MEDS ORDERED: MEDROL DOSEPAK4 MG PO (07:32)
== END 2022-03-15 08:20 | disposition home or self-care (01) ==
LOC: ED 06:42
DX: M25.561 Pain in right knee (principal); M10.9 Gout, unspecified; E66.01 Morbid (severe) obesity due to excess calories; I12.9 Hypertensive chronic kidney disease with stage 1 through stage 4 chronic kidney disease, or unspecified chronic kidney disease; N18.9 Chronic kidney disease, unspecified; Z91.013 Allergy to seafood; Z88.1 Allergy status to other antibiotic agents; Z79.899 Other long term (current) drug therapy; Z90.89 Acquired absence of other organs; Z87.891 Personal history of nicotine dependence

== ENCOUNTER 2022-03-16 23:38 | Emergency (ER) | payer OTHER | END 2022-03-17 03:18 | disposition home or self-care (01) | LOC: ED 23:38 | DX: M25.561 Pain in right knee (principal); I10 Essential (primary) hypertension; E11.9 Type 2 diabetes mellitus without complications; M10.9 Gout, unspecified; J45.909 Unspecified asthma, uncomplicated; E66.9 Obesity, unspecified; Z91.013 Allergy to seafood; Z88.1 Allergy status to other antibiotic agents; Z79.899 Other long term (current) drug therapy; Z90.89 Acquired absence of other organs; Z98.890 Other specified postprocedural states; Z87.891 Personal history of nicotine dependence ==

== ENCOUNTER → 2022-03-27 | Outpatient (CLI) | payer OTHER ==
[2022-03-27 13:06] LABS: BASO # 0.1 10*3/uL (0.0-0.1); BASO % 0.9 % (0.0-1.0); EOS % 0.5 % (1.0-4.0); HEMATOCRIT 53.5 % (42.0-52.0); LYMPH # 1.7 10*3/uL (1.3-4.4); LYMPH % 22.3 % (27.0-41.0); MEAN CELL VOLUME 96.9 fl (80.0-94.0); MEAN CORPUSCULAR HGB 29.9 pg (27.0-31.0); MEAN CORPUSCULAR HGB CONC 30.8 g/dl (33.0-37.0); MEAN PLATELET VOLUME 12.6 fl (9.6-12.3); MONO # 0.8 10*3/uL (0.1-1.0); MONO % 10.8 % (3.0-9.0); NEUT % 65.1 % (47.0-73.0); PLATELET COUNT AUTOMATED 156 10*3/uL (130-400); RED BLOOD COUNT 5.52 10*6/uL (4.50-5.90); WHITE BLOOD COUNT 7.7 10*3/uL (4.8-10.8)
[2022-03-27 13:28] LABS: CREATININE 2.21 mg/dL (0.70-1.30); POTASSIUM 4.9 mmol/L (3.5-5.1)
[2022-03-27 13:33] LABS: TOTAL PROTEIN 6.9 gm/dL (6.4-8.2)
[2022-03-31 23:06] LABS: HSV-2 DNA Negative (Negative)
== END | disposition home or self-care (01) ==
LOC: LAB 12:14
PROVIDERS: ATTEND Urology
DX: D40.0 Neoplasm of uncertain behavior of prostate (principal); R53.83 Other fatigue

== ENCOUNTER → 2022-03-29 | Outpatient (CLI) | payer OTHER | END | disposition home or self-care (01) | LOC: COVID19 08:49 | PROVIDERS: ATTEND Internal Medicine | DX: Z20.822 Contact with and (suspected) exposure to COVID-19 (principal) ==

== ENCOUNTER → 2022-04-04 | Outpatient (CLI) | payer OTHER | LOC: CT 11:00 | PROVIDERS: ATTEND Urology | DX: N43.2 Other hydrocele (principal); K40.90 Unilateral inguinal hernia, without obstruction or gangrene, not specified as recurrent; K57.32 Diverticulitis of large intestine without perforation or abscess without bleeding; I51.7 Cardiomegaly; K44.9 Diaphragmatic hernia without obstruction or gangrene; R60.9 Edema, unspecified; M25.452 Effusion, left hip ==

== ENCOUNTER 2022-05-09 13:19 | Emergency (ER) | payer OTHER ==
[~2022-05-09] VITALS: Ht 170.1 cm; Wt 172.4 kg
[2022-05-09] MEDS ORDERED: PREDNISONE20 M1 PO (13:42)
== END 2022-05-09 14:01 | disposition home or self-care (01) ==
LOC: ED 13:19
DX: M10.061 Idiopathic gout, right knee (principal); Z91.013 Allergy to seafood; Z88.1 Allergy status to other antibiotic agents; Z79.899 Other long term (current) drug therapy; Z95.0 Presence of cardiac pacemaker; Z90.89 Acquired absence of other organs; Z87.891 Personal history of nicotine dependence

== ENCOUNTER → 2022-05-24 | Outpatient (CLI) | payer OTHER ==
[2022-05-24 17:33] LABS: LDH 216 U/L (87-241)
[2022-05-24 17:35] LABS: BETA-HCG, TUMOR MARKER < 1.0 mIU/mL (<1)
== END | disposition home or self-care (01) ==
LOC: US 14:00 → LAB 14:10
PROVIDERS: ATTEND Urology
DX: N50.3 Cyst of epididymis (principal); N43.2 Other hydrocele; N50.89 Other specified disorders of the male genital organs

== ENCOUNTER 2022-06-18 09:22 | Emergency (ER) | payer OTHER ==
[~2022-06-18] VITALS: Ht 170.1 cm; Wt 172.4 kg
== END 2022-06-18 10:53 | disposition home or self-care (01) ==
LOC: ED 09:22
DX: M10.9 Gout, unspecified (principal); I12.9 Hypertensive chronic kidney disease with stage 1 through stage 4 chronic kidney disease, or unspecified chronic kidney disease; N18.9 Chronic kidney disease, unspecified; E66.01 Morbid (severe) obesity due to excess calories; Z91.013 Allergy to seafood; Z88.1 Allergy status to other antibiotic agents; Z79.899 Other long term (current) drug therapy; Z90.89 Acquired absence of other organs; Z87.891 Personal history of nicotine dependence; Z98.890 Other specified postprocedural states

== ENCOUNTER 2022-11-06 21:48 | Emergency (ER) | payer OTHER ==
[~2022-11-06] VITALS: Ht 170.1 cm; Wt 167.8 kg
[2022-11-06 22:24] LABS: BASO # 0.1 10*3/uL (0.0-0.1); BASO % 0.9 % (0.0-1.0); EOS # 0.1 10*3/uL (0.0-0.4); EOS % 1.7 % (1.0-4.0); HEMATOCRIT 51.5 % (42.0-52.0); LYMPH # 1.4 10*3/uL (1.3-4.4); LYMPH % 20.7 % (27.0-41.0); MEAN CORPUSCULAR HGB 29.8 pg (27.0-31.0); MEAN CORPUSCULAR HGB CONC 30.7 g/dl (33.0-37.0); MEAN PLATELET VOLUME 12.3 fl (9.6-12.3); MONO # 0.7 10*3/uL (0.1-1.0); MONO % 10.2 % (3.0-9.0); NEUT # 4.6 10*3/uL (2.3-7.9); NEUT % 66.2 % (47.0-73.0); PLATELET COUNT AUTOMATED 162 10*3/uL (130-400); RED BLOOD COUNT 5.31 10*6/uL (4.50-5.90); RED CELL DISTRI WIDTH 14.2 % (0-14.5); WHITE BLOOD COUNT 6.9 10*3/uL (4.8-10.8)
[2022-11-06 22:35] LABS: INTERNATIONAL NORM RATIO 1.4 (2.0-3.5)
[2022-11-06 22:53] LABS: POTASSIUM 4.3 mmol/L (3.4-5.1)
== END 2022-11-07 01:07 | disposition left against medical advice (07) ==
LOC: ED 21:48
PROVIDERS: Emergency Medicine
DX: R77.8 Other specified abnormalities of plasma proteins (principal); I50.9 Heart failure, unspecified; I11.0 Hypertensive heart disease with heart failure; Z86.718 Personal history of other venous thrombosis and embolism; E11.9 Type 2 diabetes mellitus without complications; J45.909 Unspecified asthma, uncomplicated; M10.9 Gout, unspecified; Z88.8 Allergy status to other drugs, medicaments and biological substances; Z91.013 Allergy to seafood; Z90.89 Acquired absence of other organs; Z98.890 Other specified postprocedural states; Z87.891 Personal history of nicotine dependence; F10.90 Alcohol use, unspecified, uncomplicated

== ENCOUNTER 2022-11-25 10:46 | Emergency (ER) | payer OTHER ==
[~2022-11-25] VITALS: Wt 172.4 kg
[2022-11-25] MEDS ORDERED: MEDROL DOSEPAK4 MG PO (11:39)
== END 2022-11-25 11:50 | disposition home or self-care (01) ==
LOC: ED 10:46
DX: M10.9 Gout, unspecified (principal); I10 Essential (primary) hypertension; Z86.718 Personal history of other venous thrombosis and embolism; E11.9 Type 2 diabetes mellitus without complications; J45.909 Unspecified asthma, uncomplicated; Z91.013 Allergy to seafood; Z88.8 Allergy status to other drugs, medicaments and biological substances; Z90.89 Acquired absence of other organs; Z98.890 Other specified postprocedural states; Z87.891 Personal history of nicotine dependence

== ENCOUNTER → 2023-01-20 | Outpatient (CLI) | payer OTHER ==
[2023-01-20 14:11] LABS: BASO # 0.1 10*3/uL (0.0-0.1); BASO % 0.9 % (0.0-1.0); EOS # 0.2 10*3/uL (0.0-0.4); EOS % 3.5 % (1.0-4.0); HEMATOCRIT 57.1 % (42.0-52.0); LYMPH # 1.5 10*3/uL (1.3-4.4); MEAN CELL VOLUME 93.5 fl (80.0-94.0); MEAN CORPUSCULAR HGB 29.3 pg (27.0-31.0); MEAN CORPUSCULAR HGB CONC 31.3 g/dl (33.0-37.0); MEAN PLATELET VOLUME 12.5 fl (9.6-12.3); MONO # 0.5 10*3/uL (0.1-1.0); MONO % 9.6 % (3.0-9.0); NEUT # 3.2 10*3/uL (2.3-7.9); NEUT % 58.6 % (47.0-73.0); PLATELET COUNT AUTOMATED 142 10*3/uL (130-400); RED BLOOD COUNT 6.11 10*6/uL (4.50-5.90); RED CELL DISTRI WIDTH 14.1 % (0-14.5); WHITE BLOOD COUNT 5.4 10*3/uL (4.8-10.8)
[2023-01-20 14:56] LABS: POTASSIUM 4.8 mmol/L (3.4-5.1); THYROID STIM HORMONE (HS) 2.548 uIU/ml (0.550-4.780); TOTAL PROTEIN 7.7 gm/dL (6.0-8.0)
== END | disposition home or self-care (01) ==
LOC: LAB 13:44
PROVIDERS: ATTEND Nurse Practitioner Family
DX: E11.9 Type 2 diabetes mellitus without complications (principal); E78.00 Pure hypercholesterolemia, unspecified; E55.9 Vitamin D deficiency, unspecified; I10 Essential (primary) hypertension

== ENCOUNTER 2023-05-17 04:50 | Emergency (ER) | payer OTHER ==
[~2023-05-17] VITALS: Ht 170.1 cm; Wt 181.4 kg
[2023-05-17] MEDS ORDERED: MEDROL DOSEPAK4 MG PO (05:15)
== END 2023-05-17 05:23 | disposition home or self-care (01) ==
LOC: ED 04:50
DX: M10.072 Idiopathic gout, left ankle and foot (principal); I13.0 Hypertensive heart and chronic kidney disease with heart failure and stage 1 through stage 4 chronic kidney disease, or unspecified chronic kidney disease; N18.9 Chronic kidney disease, unspecified; I50.9 Heart failure, unspecified; E66.01 Morbid (severe) obesity due to excess calories; I73.9 Peripheral vascular disease, unspecified; E43 Unspecified severe protein-calorie malnutrition; Z91.013 Allergy to seafood; Z88.1 Allergy status to other antibiotic agents; Z79.899 Other long term (current) drug therapy; Z86.718 Personal history of other venous thrombosis and embolism; Z68.43 Body mass index [BMI] 50.0-59.9, adult; Z95.0 Presence of cardiac pacemaker; Z90.89 Acquired absence of other organs; Z87.891 Personal history of nicotine dependence

== ENCOUNTER 2023-06-10 09:01 | Emergency (ER) | payer OTHER ==
[~2023-06-10] VITALS: Ht 170.1 cm; Wt 181.4 kg
[2023-06-10 10:15] LABS: BASO % 0.7 % (0.0-1.0); EOS # 0.1 10*3/uL (0.0-0.4); EOS % 2.3 % (1.0-4.0); HEMATOCRIT 51.8 % (42.0-52.0); LYMPH % 17.7 % (27.0-41.0); MEAN CELL VOLUME 98.3 fl (80.0-94.0); MEAN CORPUSCULAR HGB 30.7 pg (27.0-31.0); MEAN CORPUSCULAR HGB CONC 31.3 g/dl (33.0-37.0); MEAN PLATELET VOLUME 11.7 fl (9.6-12.3); MONO # 0.6 10*3/uL (0.1-1.0); MONO % 9.6 % (3.0-9.0); NEUT % 69.5 % (47.0-73.0); PLATELET COUNT AUTOMATED 124 10*3/uL (130-400); RED BLOOD COUNT 5.27 10*6/uL (4.50-5.90); RED CELL DISTRI WIDTH 13.5 % (0-14.5); WHITE BLOOD COUNT 5.7 10*3/uL (4.8-10.8)
[2023-06-10 10:26] LABS: ACT PARTIAL THROMBO TIME 37.1 SECONDS (20.0-32.1); INTERNATIONAL NORM RATIO 1.3 (2.0-3.5)
[2023-06-10 10:45] LABS: POTASSIUM 4.1 mmol/L (3.4-5.1); TOTAL PROTEIN 6.6 gm/dL (6.0-8.0); URIC ACID 10.2 mg/dL (3.7-9.2)
[2023-06-10] MEDS ORDERED: PREDNISONE50 MG PO (11:16)
[2023-06-10] MEDS ORDERED: HYDROCODONE-AC1 EAC1 PO (11:16)
== END 2023-06-10 11:34 | disposition home or self-care (01) ==
LOC: ED 09:01
PROVIDERS: Emergency Medicine
DX: M10.062 Idiopathic gout, left knee (principal); Z86.718 Personal history of other venous thrombosis and embolism; Z91.013 Allergy to seafood; Z88.1 Allergy status to other antibiotic agents; Z79.899 Other long term (current) drug therapy; Z90.89 Acquired absence of other organs; Z95.0 Presence of cardiac pacemaker; Z87.891 Personal history of nicotine dependence

== ENCOUNTER 2023-06-21 18:29 | Emergency (ER) | payer OTHER ==
[~2023-06-21] VITALS: Ht 170.1 cm; Wt 181.4 kg
[2023-06-21] MEDS ORDERED: PREDNISONE50 MG PO (19:45)
== END 2023-06-21 20:19 | disposition home or self-care (01) ==
LOC: ED 18:29
DX: M10.9 Gout, unspecified (principal); I10 Essential (primary) hypertension; Z86.718 Personal history of other venous thrombosis and embolism; E11.9 Type 2 diabetes mellitus without complications; J45.909 Unspecified asthma, uncomplicated; Z91.013 Allergy to seafood; Z88.8 Allergy status to other drugs, medicaments and biological substances; Z90.89 Acquired absence of other organs; Z95.5 Presence of coronary angioplasty implant and graft; Z98.890 Other specified postprocedural states; Z87.891 Personal history of nicotine dependence

== ENCOUNTER 2023-09-26 01:54 | Emergency (ER) | payer OTHER ==
[~2023-09-26] VITALS: Ht 170.1 cm; Wt 158.8 kg
[2023-09-26] MEDS ORDERED: methylPREDNISolone sod succ 125 MG VIAL IM ONE (02:25)
[2023-09-26] MEDS ORDERED: Acetaminophen/Hydrocodone 5 MG/325 MG TABLET PO ONE ×2 (02:25→03:45)
[2023-09-26 02:40] LABS: BASO # 0.1 10*3/uL (0.0-0.1); BASO % 0.7 % (0.0-1.0); EOS # 0.3 10*3/uL (0.0-0.4); EOS % 4.1 % (1.0-4.0); LYMPH # 1.3 10*3/uL (1.3-4.4); LYMPH % 17.9 % (27.0-41.0); MEAN CELL VOLUME 98.7 fl (80.0-94.0); MEAN CORPUSCULAR HGB 29.2 pg (27.0-31.0); MEAN CORPUSCULAR HGB CONC 29.6 g/dl (33.0-37.0); MEAN PLATELET VOLUME 12.5 fl (9.6-12.3); MONO # 0.8 10*3/uL (0.1-1.0); NEUT # 4.9 10*3/uL (2.3-7.9); NEUT % 66.2 % (47.0-73.0); PLATELET COUNT AUTOMATED 151 10*3/uL (130-400); RED BLOOD COUNT 5.27 10*6/uL (4.50-5.90); RED CELL DISTRI WIDTH 14.7 % (0-14.5); WHITE BLOOD COUNT 7.4 10*3/uL (4.8-10.8)
[2023-09-26 02:54] LABS: POTASSIUM 4.6 mmol/L (3.4-5.1); URIC ACID 10.1 mg/dL (3.7-9.2)
== END 2023-09-26 03:49 | disposition home or self-care (01) ==
LOC: ED 01:54
PROVIDERS: Emergency Medicine
DX: M10.9 Gout, unspecified (principal); I50.9 Heart failure, unspecified; D64.9 Anemia, unspecified; E11.22 Type 2 diabetes mellitus with diabetic chronic kidney disease; I13.0 Hypertensive heart and chronic kidney disease with heart failure and stage 1 through stage 4 chronic kidney disease, or unspecified chronic kidney disease; N18.9 Chronic kidney disease, unspecified; E11.65 Type 2 diabetes mellitus with hyperglycemia; J45.909 Unspecified asthma, uncomplicated; Z91.013 Allergy to seafood; Z88.8 Allergy status to other drugs, medicaments and biological substances; Z98.890 Other specified postprocedural states; Z86.718 Personal history of other venous thrombosis and embolism; Z90.89 Acquired absence of other organs; Z87.891 Personal history of nicotine dependence

== ENCOUNTER → 2023-11-11 | Outpatient (CLI) | payer OTHER ==
[2023-11-11 12:01] LABS: BASO # 0.1 10*3/uL (0.0-0.1); BASO % 0.6 % (0.0-1.0); EOS # 0.1 10*3/uL (0.0-0.4); EOS % 1.1 % (1.0-4.0); LYMPH # 2.2 10*3/uL (1.3-4.4); LYMPH % 23.4 % (27.0-41.0); MEAN CELL VOLUME 96.6 fl (80.0-94.0); MEAN CORPUSCULAR HGB 29.7 pg (27.0-31.0); MEAN CORPUSCULAR HGB CONC 30.7 g/dl (33.0-37.0); MEAN PLATELET VOLUME 12.9 fl (9.6-12.3); MONO # 0.8 10*3/uL (0.1-1.0); MONO % 8.2 % (3.0-9.0); NEUT # 6.2 10*3/uL (2.3-7.9); NEUT % 66.5 % (47.0-73.0); PLATELET COUNT AUTOMATED 136 10*3/uL (130-400); WHITE BLOOD COUNT 9.3 10*3/uL (4.8-10.8)
[2023-11-11 12:23] LABS: POTASSIUM 4.5 mmol/L (3.4-5.1); TOTAL PROTEIN 7.3 gm/dL (6.0-8.0); URIC ACID 9.7 mg/dL (3.7-9.2)
== END | disposition home or self-care (01) ==
LOC: LAB 11:30
PROVIDERS: ATTEND Nurse Practitioner Family
DX: I10 Essential (primary) hypertension (principal); E11.9 Type 2 diabetes mellitus without complications; M1A.9XX0 Chronic gout, unspecified, without tophus (tophi); E78.00 Pure hypercholesterolemia, unspecified

== ENCOUNTER 2023-11-14 09:34 | Emergency (ER) | payer OTHER ==
[~2023-11-14] VITALS: Ht 170.1 cm; Wt 181.4 kg
[2023-11-14] MEDS ORDERED: Acetaminophen/Hydrocodone 5 MG/325 MG TABLET PO ONE (09:55)
[2023-11-14] MEDS ORDERED: methylPREDNISolone sod succ 125 MG VIAL IM ONE (09:55)
[2023-11-14] MEDS ORDERED: PREDNISONE20 M1 PO (09:58)
[2023-11-14] MEDS ORDERED: PERCOCET 5-3251 EACH PO ×2 (09:58→10:00)
== END 2023-11-14 10:06 | disposition home or self-care (01) ==
LOC: ED 09:34
DX: M10.9 Gout, unspecified (principal); I10 Essential (primary) hypertension; Z86.718 Personal history of other venous thrombosis and embolism; E11.9 Type 2 diabetes mellitus without complications; J45.909 Unspecified asthma, uncomplicated; Z91.013 Allergy to seafood; Z88.8 Allergy status to other drugs, medicaments and biological substances; Z90.89 Acquired absence of other organs; Z98.890 Other specified postprocedural states; Z87.891 Personal history of nicotine dependence

== ENCOUNTER 2023-12-22 14:57 | Emergency (ER) | payer OTHER ==
[~2023-12-22] VITALS: Ht 170.1 cm; Wt 176.9 kg
[~2023-12-22 14:57] MED LIST changes: +PERCOCET 5-3251 EACH PO
[2023-12-22] MEDS ORDERED: methylPREDNISolone sod succ 1,000 MG/16 ML VIAL IM ONE (16:10)
[2023-12-22] MEDS ORDERED: methylPREDNISolone sod succ 125 MG VIAL IM ONE (16:15)
[2023-12-22] MEDS ORDERED: ACETAMINOPHEN 325 MG TAB PO ONE (16:25)
[2023-12-22] MEDS ORDERED: MEDROL DOSEPAK4 MG PO (16:58)
== END 2023-12-22 17:10 | disposition home or self-care (01) ==
LOC: ED 14:57
DX: M10.9 Gout, unspecified (principal); I10 Essential (primary) hypertension; E11.9 Type 2 diabetes mellitus without complications; J45.909 Unspecified asthma, uncomplicated; Z91.013 Allergy to seafood; Z88.8 Allergy status to other drugs, medicaments and biological substances; Z90.89 Acquired absence of other organs; Z98.890 Other specified postprocedural states; Z87.891 Personal history of nicotine dependence; Z86.718 Personal history of other venous thrombosis and embolism

== ENCOUNTER 2024-05-03 11:29 | Emergency (ER) | payer OTHER ==
[~2024-05-03] VITALS: Ht 170.1 cm; Wt 158.8 kg
[2024-05-03] MEDS ORDERED: PREDNISONE50 MG PO (11:57)
[2024-05-03] MEDS ORDERED: methylPREDNISolone sod succ 125 MG VIAL IM ONE (12:00)
== END 2024-05-03 11:55 | disposition home or self-care (01) ==
LOC: ED 11:29
DX: M10.9 Gout, unspecified (principal); I10 Essential (primary) hypertension; E11.9 Type 2 diabetes mellitus without complications; J45.909 Unspecified asthma, uncomplicated; Z91.013 Allergy to seafood; Z88.8 Allergy status to other drugs, medicaments and biological substances; Z90.89 Acquired absence of other organs; Z98.890 Other specified postprocedural states; Z87.891 Personal history of nicotine dependence; Z86.718 Personal history of other venous thrombosis and embolism

== ENCOUNTER → 2024-05-17 | Outpatient (CLI) | payer OTHER ==
[2024-05-17 14:20] LABS: BASO # 0.1 10*3/uL (0.0-0.1); BASO % 0.5 % (0.0-1.0); EOS # 0.5 10*3/uL (0.0-0.4); EOS % 4.5 % (1.0-4.0); HEMATOCRIT 51.6 % (42.0-52.0); LYMPH # 1.9 10*3/uL (1.3-4.4); LYMPH % 16.9 % (27.0-41.0); MEAN CORPUSCULAR HGB 29.5 pg (27.0-31.0); MEAN CORPUSCULAR HGB CONC 30.4 g/dl (33.0-37.0); MEAN PLATELET VOLUME 12.8 fl (9.6-12.3); MONO # 1.2 10*3/uL (0.1-1.0); MONO % 10.2 % (3.0-9.0); NEUT # 7.6 10*3/uL (2.3-7.9); NEUT % 67.5 % (47.0-73.0); PLATELET COUNT AUTOMATED 128 10*3/uL (130-400); RED BLOOD COUNT 5.32 10*6/uL (4.50-5.90); RED CELL DISTRI WIDTH 12.6 % (0-14.5); WHITE BLOOD COUNT 11.3 10*3/uL (4.8-10.8)
[2024-05-17 14:43] LABS: POTASSIUM 4.6 mmol/L (3.4-5.1); TOTAL PROTEIN 6.9 gm/dL (6.0-8.0)
== END | disposition home or self-care (01) ==
LOC: LAB 14:02
PROVIDERS: ATTEND Nurse Practitioner Family
DX: I10 Essential (primary) hypertension (principal); E11.9 Type 2 diabetes mellitus without complications; E55.9 Vitamin D deficiency, unspecified; E78.00 Pure hypercholesterolemia, unspecified

== ENCOUNTER 2024-05-26 17:55 | Emergency (ER) | payer OTHER ==
[~2024-05-26] VITALS: Wt 181.4 kg
[2024-05-26 18:48] LABS: BASO % 0.2 % (0.0-1.0); EOS # 0.1 10*3/uL (0.0-0.4); EOS % 0.4 % (1.0-4.0); HEMATOCRIT 49.1 % (42.0-52.0); LYMPH # 0.7 10*3/uL (1.3-4.4); LYMPH % 5.9 % (27.0-41.0); MEAN CELL VOLUME 96.3 fl (80.0-94.0); MEAN CORPUSCULAR HGB CONC 30.1 g/dl (33.0-37.0); MEAN PLATELET VOLUME 12.1 fl (9.6-12.3); MONO # 1.2 10*3/uL (0.1-1.0); MONO % 9.7 % (3.0-9.0); NEUT # 10.1 10*3/uL (2.3-7.9); NEUT % 83.1 % (47.0-73.0); PLATELET COUNT AUTOMATED 258 10*3/uL (130-400); WHITE BLOOD COUNT 12.2 10*3/uL (4.8-10.8)
[2024-05-26] MEDS ORDERED: BUMETANIDE 1 MG/4 ML VIAL IV ONE (21:10)
[2024-05-26] MEDS ORDERED: BUSPIRONE HCL7.5 MG PO (21:27)
[2024-05-26] MEDS ORDERED: METHOCARBAMOL 750 MG TAB PO ONE (21:35)
[2024-05-26] MEDS ORDERED: methylPREDNISolone sod succ 125 MG VIAL IV ONE (21:35)
[2024-05-27] MEDS ORDERED: PREDNISONE20 M1 PO (00:36)
[2024-05-27] MEDS ORDERED: METHOCARBAMOL750 M1 PO (00:36)
== END 2024-05-27 00:46 | disposition home or self-care (01) ==
LOC: ED 17:55
PROVIDERS: Internal Medicine
DX: I50.9 Heart failure, unspecified (principal); R79.89 Other specified abnormal findings of blood chemistry; D72.829 Elevated white blood cell count, unspecified; N17.9 Acute kidney failure, unspecified; I11.0 Hypertensive heart disease with heart failure; E11.9 Type 2 diabetes mellitus without complications; J45.909 Unspecified asthma, uncomplicated; M10.9 Gout, unspecified; Z91.013 Allergy to seafood; Z88.8 Allergy status to other drugs, medicaments and biological substances; Z90.89 Acquired absence of other organs; Z98.890 Other specified postprocedural states; Z87.891 Personal history of nicotine dependence; Z86.718 Personal history of other venous thrombosis and embolism